=== PATIENT | female | born 1955 | race Caucasian/White ===

== ENCOUNTER 2019-01-09 07:15 | Emergency (ER) | payer MEDICAID, OTHER ==
[~2019-01-09] VITALS: Ht 170.2 cm; Wt 89.0 kg
[~2019-01-09 07:15] MED LIST: CELE200C PO; CHOL4PAC11 PO; CIPR500T87 PO; COLC25PO2 PO; DEXL60CA2 PO; ESTR1TAB15 PO; IRBE75TA31 PO; METR500T PO; TRAM-47 PO
[2019-01-09 07:17] VITALS: BP 161/85
[2019-01-09] MEDS ORDERED: DICYCLOMINE (07:28)
[2019-01-09] MEDS ORDERED: COLCHICINE 0.6 MG TABLET PO ONE (08:00)
[2019-01-09 08:09] LABS: BASOPHILS # (AUTO) 0.05 x10^3/uL (0-0.1); BASOPHILS % (AUTO) 1 % (0-1); EOSINOPHILS # (AUTO) 0.15 x10^3/uL (0-0.4); EOSINOPHILS % (AUTO) 2 % (1-7); LYMPHOCYTES # (AUTO) 2.45 x10^3/uL (1-3.4); LYMPHOCYTES % (AUTO) 25 % (22-44); MD NO; MEAN CORPUSCULAR HEMOGLOBIN 28.9 pg (27.0-34.8); MEAN CORPUSCULAR HGB CONC 32.1 g/dL (32.4-35.8); MEAN PLATELET VOLUME 9.9 fL (7.4-10.4); MONOCYTES # (AUTO) 0.47 x10^3/uL (0.2-0.8); MONOCYTES % (AUTO) 5 % (2-9); NEUTROPHILS # (AUTO) 6.66 x10^3/uL (1.8-6.8); NEUTROPHILS % (AUTO) 68 % (42-75); PLATELET COUNT 286 x10^3/uL (130-400); RED BLOOD COUNT 4.37 x10^6/uL (3.82-5.3); RED CELL DISTRIBUTION WIDTH 14.1 % (9.6-15.2)
[2019-01-09] MEDS ORDERED: COLCHICINE 0.6 MG TABLET ONE (08:10)
[2019-01-09 08:22] LABS: ALBUMIN 3.7 g/dL (3.4-5.0); ANION GAP 9 mmol/L (5-15); CALCIUM 8.8 mg/dL (8.5-10.1); CHLORIDE 110 mmol/L (98-107); CREATININE 1.08 mg/dL (0.55-1.02)
== END 2019-01-09 09:27 | disposition home or self-care (01) ==
LOC: ED 09:08
DX: M13.172 Monoarthritis, not elsewhere classified, left ankle and foot (principal); M10.072 Idiopathic gout, left ankle and foot; I10 Essential (primary) hypertension; Z88.0 Allergy status to penicillin; Z88.2 Allergy status to sulfonamides
CPT/HCPCS: 36415; 80048; 82040; 84550; 85025; 99284

== ENCOUNTER 2019-07-14 10:08 | Emergency (ER) | payer MEDICAID ==
[~2019-07-14] VITALS: Ht 170.2 cm; Wt 86.3 kg
[~2019-07-14 10:08] MED LIST changes: +DICYCLOMINE
[2019-07-14 10:12] VITALS: BP 159/88
--- NOTE | 2019-07-14 10:25 | NUR ---
PT REPORTS RIGHT FOOT PAIN. HAS HX OF GOUT. STATED SHE HAS BEEN "STRESSED LATLEY". PATIENT IS SITTING IN CHAIR. CALL LIGHT WITHIN REACH
[2019-07-14] MEDS ORDERED: LOSA1TAB22 PO (10:29)
[2019-07-14] MEDS ORDERED: HYDROcodone/APAP 5/325 TABLET ONE (10:41)
[2019-07-14] MEDS ORDERED: KETOROLAC 30 MG/1 ML ONE (10:41)
[2019-07-14] MEDS ORDERED: KETOROLAC 30 MG/1 ML IM ONE (11:00)
[2019-07-14] MEDS ORDERED: HYDROcodone/APAP 5/325 TABLET PO ONE (11:00)
--- NOTE | 2019-07-14 11:18 | NUR ---
PT REPORTS PAIN IS BETTER AFTER PAIN MEDICATIONS.
== END 2019-07-14 11:20 | disposition home or self-care (01) ==
LOC: ED 11:17
DX: M13.171 Monoarthritis, not elsewhere classified, right ankle and foot (principal); M10.9 Gout, unspecified
CPT/HCPCS: 73630; 96372; 99283; J1885